=== PATIENT | male | born 1990 | race African-American/Black ===

== ENCOUNTER 2018-11-24 22:56 | Emergency (ER) | payer BC ==
[2018-11-25] MEDS: DIPHTH/TET/ACEL PERTUSS (ADULT) 0.5 ML VIAL IM* (00:35)
[2018-11-25] MEDS: KETOROLAC 30 MG INJ IM (00:36)
[2018-11-25] MEDS: CEFTRIAXONE 250 MG INJ IM (00:36)
[2018-11-25] MEDS: LIDOCAINE 1% (MDV) 20 ML INJ SC (00:36)
== END 2018-11-25 01:25 | disposition home or self-care (01) ==
LOC: FTE 22:56
DX: S51.012A Laceration without foreign body of left elbow, initial encounter (principal); J45.909 Unspecified asthma, uncomplicated; W25.XXXA Contact with sharp glass, initial encounter; Y92.9 Unspecified place or not applicable; Z23 Encounter for immunization
CPT/HCPCS: 12002; 90471; 90715; 96372; 99284-25